=== PATIENT | female | born 1995 ===

== ENCOUNTER 2018-10-25 20:04 | Emergency (ER) | payer OTHER ==
[2018-10-25 22:15] VITALS: BP 118/68
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
[2018-10-26] MEDS ORDERED: IBUPROFEN PO ONE (02:31)
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
== END 2018-10-26 02:36 | disposition home or self-care (01) ==
LOC: ED 20:04
DX: S16.1XXA Strain of muscle, fascia and tendon at neck level, initial encounter (principal); M54.6 Pain in thoracic spine; V89.2XXA Person injured in unspecified motor-vehicle accident, traffic, initial encounter; Y93.89 Activity, other specified; Y92.488 Other paved roadways as the place of occurrence of the external cause; Y99.8 Other external cause status
CPT/HCPCS: 72040; 72070; 99283